=== PATIENT | male | born 1990 | race Caucasian/White ===

== ENCOUNTER 2017-11-26 05:27 | Emergency (ER) | payer OTHER, SELFPAY ==
[2017-11-26 05:28] VITALS: BP 125/80; BP 140/84; PULSE 98; RESP 18; TEMP 36.8; O2SAT 97; O2SAT 98; BMI 22.2
--- NOTE | 2017-11-26 05:35 | CT_ITS ---
STUDY: CT ABDOMEN AND PELVIS WITH CONTRAST REASON FOR EXAM: Male, 27 years old. Nausea and vomiting. RADIATION DOSAGE (If Supplied By Facility): CTDIvol = ( 9.98 ) mGy, DLP = ( 327.82 ) mGycm TECHNIQUE: Transaxial images were obtained from the dome of the diaphragm to the symphysis pubis with oral contrast. 100mL ml of Isovue 300 contrast was administered. Sagittal and coronal images were reconstructed. Individualized dose optimization techniques were used for this CT. COMPARISON: None. FINDINGS: Calcified granuloma in the left lower lobe. The visualized portions of the heart are within normal limits. Normal liver. Normal gallbladder and extrahepatic biliary system. Normal spleen. Normal pancreas. Normal bilateral adrenal glands. Normal right kidney. Normal left kidney. Normal visualized stomach. Normal small intestine. Normal colon. The appendix is visualized and appears normal. Normal abdominal aorta. Normal inferior vena cava. Normal retroperitoneum. Normal urinary bladder. Normal abdominal wall. Normal osseous structures. CT/Abdomen/Pelvis WITH Contrast IMPRESSION: Normal enhanced CT of the abdomen and pelvis. Electronically Signed: Lam Tineo MD at 8:03 EST Tel [phone], Service support ,
[2017-11-26 05:45] VITALS: RESP 16
--- NOTE | 2017-11-26 05:48 | ED.DCSUM_ITS ---
- ER Visit Summary Date of Service: 11/26/17 Chief Complaint: Nausea, vomiting, abdominal pain History of Present Illness: The patient is a 27 M since to the emergency department with nausea, vomiting, and mild abdominal pain. The patient was in his normal state of health. He states that about 9 PM, he woke with some cramping abdominal pain. He had the urge to vomit. He states he went to the bathroom and states he has been vomiting intimately since then. He went to [facility] and got Pedialyte. He states he was unable to keep it down. He states he continues to have dry heaves. Over the past few hours, he has begun to have some mild pain along his lower abdomen towards his umbilicus. The pain has not migrated. He does admit to chills, but did not take his temperature. Physical Examination: Vital signs reviewed General: Well-nourished, well-developed Head: Normocephalic, atraumatic Eyes: Pupils equal and reactive, extraocular muscles intact Neck, supple, no lymphadenopathy Heart: Regular rate and rhythm Respiratory: No distress, clear bilaterally Abdomen: Soft, minimal tenderness in the periumbilical area, no tenderness over McBurney's point, no rebound or guarding, negative psoas and obturator sign, nondistended, no peritoneal signs Back: Nontender Extremities: Nontender, no edema, no cords Skin: Normal color no rash Neuro: Alert and oriented, no focal or lateralizing deficits Test Results: Screening labs were relatively unremarkable. He does have a normal white count but does have a left shift. He is currently pending. Emergency Department Course and Treatment: Patient did have some mild pain in the periumbilical area just to the right. It was not definitively over McBurney 's point. He was treated with IV fluids, Zofran, Toradol. He did have marked improvement of his symptoms but continued to have some mild pain. With his chills and abdominal pain, especially with his age and lack of other symptoms I do feel it reasonable to rule out acute appendicitis. The patient will undergo CT of the abdomen and pelvis. This will be reevaluated by the oncoming physician. Final disposition will be made. As long as there is no evidence of acute appendicitis, I do for the patient can safely be discharged with antiemetics. Disposition is currently pending. Treatment Plan: [] Disposition: Pending Impression:. Nausea vomiting 2. Abdominal pain This note was generated with [employer] dictation software. It may contain incorrect words, spelling, and punctuation that were not noted in review of the chart prior to signing ED Disposition - Plan for ED Patient: Chief Complaint: Nausea/Vomiting Instructions: ED Nausea Vomiting Prescriptions: Ondansetron [Zofran Odt] 4 mg PO Q8H PRN PRN #10 tab PRN Reason: Nausea Referrals: NOT,DEFINED [NON-STAFF] -
[2017-11-26] MEDS: 0.9% Normal Saline 1,000 ML 1000 ML IV (05:49)
[2017-11-26] MEDS: Ondansetron 4 MG/2 ML Vial IV ×2 (05:50→07:56)
[2017-11-26] MEDS: Ketorolac 30 MG/ML Syringe 15 MG IV (05:50)
[2017-11-26 06:03] LABS: Absolute Lymphocyte Count 0.33 X10^3/ul (0.83-4.51); Absolute Neutrophil Count 9.9 X10^3/uL (2.0-7.7); Basophil# 0.01 X10^3/uL; Basophil% 0.1 % (0-1); Eosinophil# 0.02 X10^3/uL; Eosinophils% 0.2 % (0-5); Hematocrit 45.1 % (40-54); Hemoglobin 15.4 g/dl (13.0-16.5); Lymphocyte # 0.33 X10^3/ul (4.0); Lymphocyte % 3.1 % (19-41); Mean Corp Hgb Conc 34.1 g/gl (32-36); Mean Corpuscular Hgb 30.3 pg (27.0-32.0); Mean Corpuscular Volume 88.6 fL (80-94); Mean Platelet Vol. 11.1 fl (6.2-12.0); Monocyte# 0.49 X10^3/uL; Monocyte% 4.6 % (0-10); Neutrophil % 91.9 % (47-70); Platelet Count 147 K/mm3 (150-450); RBC Distribution Width CV 12.4 % (11.6-14.6); RBC Distribution Width SD 39.8 fl (35.1-43.9); Red Blood Count 5.09 M/mm3 (4.6-6.2); White Blood Count 10.8 K/mm3 (4.4-11.0)
[2017-11-26 06:04] LABS: Differential Indicated SCAN CRITERIA MET; POSITIVE COUNT NO; POSITIVE DIFFERENTIAL YES; POSITIVE MORPHOLOGY NO
[2017-11-26 06:08] LABS: Anion Gap 8 (5-15); BUN 18 mg/dL (7-18); BUN/Creat Ratio 21.1 RATIO (10-20); Calcium,Total 8.7 mg/dL (8.5-10.1); Chloride 103 mmol/L (98-107); Creatinine, Serum 0.85 mg/dL (0.70-1.30); EST Glomerular Filtration Rate 115 mL/min (>60); Est Glom Filt Rate - Afr Amer 139 mL/min (>60); Estimated Creatinine Clearance 116.42 ml/min; Glucose 106 mg/dL (74-106); Potassium 3.9 mmol/L (3.5-5.1); Sodium Level 138 mmol/L (136-145)
[2017-11-26 06:36] LABS: Differential Comment SCANNED
[2017-11-26 06:51] LABS: Bacteria 0 SEEN /hpf (None Seen); Mucous, Urine 0 SEEN /hpf (<or=2+); Red Blood Cells-Urine 0 SEEN /hpf (0-5); Squamous Epithelial Cells - UA 0 SEEN /hpf (0-5); White Blood Cells 0 SEEN /hpf (0-5)
[2017-11-26 06:53] LABS: Color, Urine Yellow (Yellow); Glucose, Dipstick Normal (Normal); Ketone-Dipstick Negative (Negative); Leukocyte Esterase-Dipstick Negative /ul (Negative); Nitrite-Dipstick Negative (Negative); Occult Blood-Urine Negative /ul (Negative); Protein-Dipstick Negative (Negative); Specific Gravity, Urine 1.015 (1.002-1.030); Urine Bilirubin Dipstick Negative (Negative); Urine Clarity Clear (Clear); Urine Urobilinogen Normal (Normal)
[2017-11-26 07:54] VITALS: BP 121/76; PULSE 83; RESP 16; O2SAT 98
[2017-11-26] MEDS: LORazepam 2 MG/ML Syringe 1 MG IV (08:19)
[2017-11-26 08:29] VITALS: BP 119/76; PULSE 83; RESP 14; O2SAT 99
== END 2017-11-26 08:47 | disposition home or self-care (01) ==
PROVIDERS: Emergency Medicine; Emergency Provider Emergency Medicine
DX: R11.2 Nausea with vomiting, unspecified (principal); R10.33 Periumbilical pain; R68.83 Chills (without fever); F41.0 Panic disorder [episodic paroxysmal anxiety]
CPT/HCPCS: 74177; 80048; 81001; 85025; 96361; 96374; 96375; 96376; 99283; J7030; Q9967; A4216; J2405